=== PATIENT | female | born 1995 | race Hispanic/Latino ===

== ENCOUNTER 2016-10-03 15:54 | Emergency (ER) | payer OTHER ==
[2016-10-03 16:19] LABS: URINE BILIRUBIN NEGATIVE (NEG); URINE BLOOD LARGE (NEG); URINE GLUCOSE (UA) NEGATIVE (NEG); URINE KETONE SMALL (NEG); URINE LEUKOCYTE ESTERASE POSITIVE (NEG); URINE NITRITE NEGATIVE (NEG); URINE PROTEIN MODERATE (NEG); URINE SPECIFIC GRAVITY 1.025 (1.003-1.030)
[2016-10-03 16:20] LABS: URINE APPEARANCE CLOUDY; URINE COLOR YELLOW
[2016-10-03 16:29] LABS: URINE AMORPHOUS 1+; URINE BACTERIA 1+; URINE EPITHELIAL CELLS 0 /[HPF] (0-10); URINE RBC 40-50 /[HPF] (0-5); URINE WBC 60-80 /[HPF] (0-5)
[2016-10-03] MEDS ORDERED: BCP PO (17:05)
[2016-10-03] MEDS ORDERED: PYRIDIUM200 M2 PO (17:26)
[2016-10-03] MEDS ORDERED: MACROBID 100 M100 M1 PO (17:27)
== END 2016-10-03 17:50 ==
LOC: EDMED 15:54
PROVIDERS: Emergency Medicine
DX: N39.0 Urinary tract infection, site not specified (principal)